=== PATIENT | female | born 2000 | race Caucasian/White ===

== ENCOUNTER 2021-03-06 16:00 | Emergency (ER) | payer OTHER ==
[~2021-03-06 16:00] MED LIST: FLEXERIL10 MG PO; KEFLEX250 MG PO; MEDROL 4MG DOSEP4 MG PO; ONDANSETRON HCL4 MG PO; ZOFRAN8 MG PO
[2021-03-06] MEDS ORDERED: MOTRIN600 MG PO (18:28)
== END 2021-03-06 19:05 | disposition home or self-care (01) ==
LOC: FER 16:00
DX: S50.02XA Contusion of left elbow, initial encounter (principal); S80.02XA Contusion of left knee, initial encounter; W01.10XA Fall on same level from slipping, tripping and stumbling with subsequent striking against unspecified object, initial encounter; Y92.511 Restaurant or cafe as the place of occurrence of the external cause
CPT/HCPCS: 73080; 73090

== ENCOUNTER 2021-03-10 19:56 | Emergency (ER) | payer OTHER ==
[~2021-03-10 19:56] MED LIST changes: +MOTRIN600 MG PO
[2021-03-10] MEDS ORDERED: NORCO 5-325 TA1 EACH PO (20:40)
== END 2021-03-10 21:50 | disposition home or self-care (01) ==
LOC: FER 19:56
DX: S50.02XA Contusion of left elbow, initial encounter (principal); W19.XXXA Unspecified fall, initial encounter; Y92.89 Other specified places as the place of occurrence of the external cause; Y99.0 Civilian activity done for income or pay
CPT/HCPCS: 99283

== ENCOUNTER 2021-10-25 13:26 | Emergency (ER) | payer OTHER ==
[~2021-10-25 13:26] MED LIST changes: +NORCO 5-325 TA1 EACH PO
[2021-10-25 18:40] LABS: BASOPHIL 0.6 % (0-2); EOSINOPHIL 2.9 % (0-5); HCT 35.9 % (37.0-47.0); HGB 11.2 g/dl (12.5-16.0); LYMPHOCYTE 35.2 % (15-48); MCH 25.8 pg (25.0-31.0); MCHC 31.2 g/dL (32.0-36.0); MCV 82.7 fL (78.0-100.0); MONOCYTE 7.6 % (0-12); MPV 9.5 fL (6.0-9.5); NEUTROPHIL 53.3 % (41-80); NRBC 0; PLT 302 K/uL (150-400); RBC 4.34 M/uL (4.20-5.40); RDW 15.2 % (11.5-14.0); WBC 8.6 K/uL (4.0-10.5)
[2021-10-25 18:57] LABS: CREATININE 0.53 mg/dL (0.51-0.95); POTASSIUM 3.7 mmol/L (3.5-5.1)
[2021-10-25 19:10] LABS: BILIRUBIN NEGATIVE (NEGATIVE); BLOOD 3+ Ery/uL (NEGATIVE); CLARITY CLEAR (CLEAR); COLOR YELLOW (YELLOW); GLUCOSE (U) NORMAL (NORMAL); LEUKOCYTES NEGATIVE Leu/uL (NEGATIVE); NITRITE NEGATIVE (NEGATIVE); PROTEIN NEGATIVE (NEGATIVE); SPECIFIC GRAVITY 1.025 (1.001-1.030); UROBILINOGEN 0.2 mg/dL (0.2-1.0); pH 7.5 (5.0-9.0)
[2021-10-25 20:12] LABS: SQUAMOUS EPITHELIAL CELLS RARE; URINARY RBC 20-50
== END 2021-10-25 19:49 | disposition home or self-care (01) ==
LOC: FER 13:26
PROVIDERS: Nurse Practitioner Family
DX: N94.6 Dysmenorrhea, unspecified (principal)
CPT/HCPCS: 36415; 80048; 81001; 85025; 99284; J1885